=== PATIENT | female | born 1965 | race African-American/Black ===

== ENCOUNTER 2017-07-09 08:27 | Emergency (ER) | payer OTHER ==
[~2017-07-09] VITALS: Ht 172.7 cm; Wt 95.8 kg
[2017-07-09 09:04] LABS: ADD MIUA? YES; BILIRUBIN NEGATIVE; BLOOD LARGE; COLOR YELLOW ((YELLOW)); GLUCOSE (STRIP) NEGATIVE; KETONES NEGATIVE; LEUKOCYTES TRACE; NITRITE NEGATIVE; PROTEIN (STRIP) 30; SPECIFIC GRAVITY 1.012 (1.000-1.030); UROBILINOGEN 0.2 MG/DL (0.2-1.0)
[2017-07-09 09:14] LABS: BACTERIA RARE /HPF; EPITHELIAL CELLS 1+ /HPF; MUCUS TRACE /LPF; RED BLOOD CELLS TNTC /HPF (0-5); UCUL ADDED? YES; UNCLASSIFIED CRYSTALS 3+ /HPF
[2017-07-09 09:26] LABS: HEMATOCRIT 42.8 % (36.0-46.0); MCH 28.5 PG (29.0-34.0); MCHC 33.4 G/DL (30.0-36.0); MCV 85.4 FL (83-99); MEAN PLAT.VOLUME 11.6 uM^3 (9.5-12.4); PLATELET COUNT 230 K/uL (156-360); RBC DIS.WIDTH-CV 13.4 % (11.8-14.6); RBC DIS.WIDTH-SD 41.5 % (39-53); RED BLOOD COUNT 5.01 M/uL (3.80-5.20); WHITE BLOOD COUNT 6.4 K/uL (4.1-10.2)
[2017-07-09 09:34] LABS: CHLORIDE 110 mEq/L (99-109); POTASSIUM 4.2 mEq/L (3.7-5.4); SODIUM 145 mEq/L (136-147)
[2017-07-09 09:36] LABS: GLUCOSE 88 mg/dL (70-99)
[2017-07-09 09:38] LABS: ANION GAP 11 MEQ/L (2-14)
[2017-07-09 09:40] LABS: GFR ESTIMATE (CALCULATED) > 59 mL/min/
[2017-07-09 09:41] LABS: UREA NITROGEN (BUN) 16 mg/dL (9-23)
[2017-07-09] MEDS ORDERED: BACTRIM,SEPT1 TABLET PO (10:49)
[2017-07-09] MEDS ORDERED: PYRIDIUM200 MG PO (10:49)
[2017-07-09 11:06] VITALS: BP 171/91
== END 2017-07-09 11:07 | disposition home or self-care (01) ==
LOC: EDBD 08:27 → EME 08:27
DX: N39.0 Urinary tract infection, site not specified (principal); E78.5 Hyperlipidemia, unspecified; Z87.440 Personal history of urinary (tract) infections; Z87.891 Personal history of nicotine dependence
CPT/HCPCS: 80048; 81003; 85027; 87086; 99281; 99285